=== PATIENT | male | born 1950 | race Caucasian/White ===

== ENCOUNTER 2022-09-21 21:09 | Emergency (ER) | payer MEDICARE, SELFPAY ==
[2022-09-21 21:18] VITALS: BP 178/95; PULSE 76; RESP 16; TEMP 36.2; O2SAT 97
[2022-09-21 23:33] LABS: Glucose Point of Care 98 mg/dl (65-105)
--- NOTE | 2022-09-21 23:33 | PC.NURSE ---
patient walked up to intake desk concerned that his blood sugar is dropping, patients blood sugar checked and found to be 98.
[2022-09-22 00:27] LABS: Add Urine Microscopic? YES; Appearance Urine Clear (Clear); Bacteria Urine Trace /hpf; Bilirubin Urine Negative (Negative); Blood Urine 3+ (Negative); Color Urine Light Yellow (Yellow); Glucose Urine UA Trace mg/dL (Negative); Ketones Urine Trace mg/dL (Negative); Leukocyte Esterase Ur Negative LEU/UL (Negative); Mucus Urine Few /lpf; Nitrate Urine Negative (Negative); Protein Urine Trace mg/dL (Negative); RBC Urine 51-75 /hpf (0-2); Urobilinogen Urine 0.2 mg/dL (<2.0)
[2022-09-22 00:43] LABS: Basophils Absolute Auto 0.1 K/mm3 (0.0-0.1); Basophils Percent Auto 0.4 % (0.2-1.2); Eosinophils Absolute Auto 0.2 K/mm3 (0-0.3); Eosinophils Percent Auto 1.3 % (0-4.4); Hematocrit 42.2 % (42.0-52.0); Hemoglobin 14.2 g/dL (14.0-18.0); Immature Granulocyte Absolute 0.04 K/mm3 (0.00-0.031); Immature Granulocyte Percent A 0.3 % (0-0.5); Lymphocytes Absolute Auto 1.24 K/mm3 (0.9-3.2); Lymphocytes Percent Auto 9.2 % (18.3-44.2); Mean Corpuscular HGB Conc 33.6 g/dl (32-36); Mean Corpuscular Hemoglobin 30.2 pg (26-34); Mean Corpuscular Volume 89.8 fl (80-100); Mean Platelet Volume 10.2 fl (7.4-10.4); Monocytes Percent Auto 7.5 % (2.6-8.5); Neutrophils Absolute Auto 10.9 K/mm3 (1.3-6.7); Neutrophils Percent Auto 81.3 % (45.5-73.1); Platelet Count Result 271 k/mm3 (150-375); Red Cell Distribution Width 13.2 % (11.5-14.5); White Blood Count 13.4 K/mm3 (4.5-10.0)
[2022-09-22 00:55] LABS: Anion Gap 9 mmol/L (8-16); Blood Urea Nitrogen 20 mg/dL (9-20); Calcium 9.7 mg/dL (8.4-10.2); Carbon Dioxide 24 mmol/L (22-30); Chloride 102 mmol/L (98-107); Estimated CRCL calculation 137 ml/min; Estimated Glomerular Filt Rate > 60; Glucose 83 mg/dL (65-110); Potassium 3.9 mmol/L (3.4-5.0); Sodium 135 mmol/L (137-145)
--- NOTE | 2022-09-22 00:59 | ED.GENADULT ---
HPI - General Adult General Chief complaint: Urogenital-Male Stated complaint: urinary retention for 7-8 hours Time Seen by Provider: 09/22/22 00:21 History of Present Illness HPI narrative: This is a 71-year-old male presenting ED for urinary retention. Patient's last voided his bladder at 9:30 a.m. this morning. He then went to lunch with friends and had 3 beers. Since then he has been having increased abdominal pressure in the suprapubic area. Patient is on Flomax for BPH. He has been taking his medication as directed. He has no added medications. He denies urinary symptoms. Denies fever chills nausea vomiting or diarrhea. Related Data Allergies Allergy/AdvReac Type Severity Reaction Status Date / Time No Known Allergies Allergy Verified 09/21/22 21:18 Review of Systems Review of Systems: CONSTITUTIONAL: Denies night sweats. EYES: No eye pain ENT: Denies rhinorrhea CARDIOVASCULAR: Denies palpitations RESPIRATORY: Denies hemoptysis GASTROINTESTINAL: Denies hematemesis GENITOURINARY: Denies hematuria. SKIN: Denies rash MUSCULOSKELETAL: Denies myalgia. NEUROLOGIC: Denies weakness. PSYCHIATRIC: Denies delusions PMFSH Past Medical History Medical History BPH (benign prostatic hyperplasia) Social History Social History Social History: Admits to alcohol, denies tobacco or drug use. Exam Narrative: APPEARANCE: No apparent distress. Head: atraumatic. EYES: EOMI, NOSE: Atraumatic NECK: Trachea midline RESPIRATORY: No increased rate of breathing CARDIOVASCULAR: RRR, ABDOMINAL: Mild tenderness palpation in the suprapubic area, no guarding no rebound no tenderness the rest the abdomen MUSCULOSKELETAl: No obvious deformities NEURO: Alert. Moving 4/4 extremities SKIN:: Warm, dry. Normal color PSYCHIATRIC: Normal affect Course Vital Signs Vital signs: Vital Signs Temperature 97.1 F L 09/21/22 21:18 Pulse Rate 76 09/21/22 21:18 Respiratory Rate 16 09/21/22 21:18 Blood Pressure 178/95 H 09/21/22 21:18 Pulse Oximetry 97 09/21/22 21:18 Oxygen Delivery Room Air 09/21/22 21:18 Temperature 97.1 F L 09/21/22 21:18 Pulse Rate 76 09/21/22 21:18 Respiratory Rate 16 09/21/22 21:18 Blood Pressure 178/95 H 09/21/22 21:18 Pulse Oximetry 97 09/21/22 21:18 Oxygen Delivery Room Air 09/21/22 21:18 Medical Decision Making MDM Narrative Medical decision making narrative: this is a 71-year-old male presenting with urinary retention. Bladder scan showed over 500 cc of urine in the bladder. A leg bag was placed. Lab work and urinalysis were sent. Urinalysis had red blood cells but no evidence of infection. CBC and BMP were within normal limits. Patient will be discharged with urology follow-up with his leg bag in place. Patient states that he has a GP in [place] and will speak to them to get a urology appointment. He will be still be given the referral here if he wishes to see a urologist while and in [place]. Vital Signs Vital Signs: Vital Signs Temperature 97.1 F L 09/21/22 21:18 Pulse Rate 76 09/21/22 21:18 Respiratory Rate 16 09/21/22 21:18 Blood Pressure 178/95 H 09/21/22 21:18 Pulse Oximetry 97 09/21/22 21:18 Oxygen Delivery Room Air 09/21/22 21:18 Temperature 97.1 F L 09/21/22 21:18 Pulse Rate 76 09/21/22 21:18 Respiratory Rate 16 09/21/22 21:18 Blood Pressure 178/95 H 09/21/22 21:18 Pulse Oximetry 97 09/21/22 21:18 Oxygen Delivery Room Air 09/21/22 21:18 Lab Data 09/22/22 00:34 09/22/22 00:34 Labs: Lab Results 09/21/22 09/22/22 09/22/22 Range/Units 23:30 00:16 00:34 WBC 13.4 H (4.5-10.0) K/mm3 RBC 4.70 (4.6-6.20) M/mm3 Hgb 14.2 (14.0-18.0) g/dL Hct 42.2 (42.0-52.0) % MCV 89.8 (80-100) fl MCH 30.2 (26-34) pg MCHC 33.6 (32-36)
[2022-09-22 02:10] VITALS: PULSE 90; RESP 18; O2SAT 99
== END 2022-09-22 03:59 | disposition home or self-care (01) ==
PROVIDERS: Emergency Provider Emergency Medicine
DX: N40.1 Benign prostatic hyperplasia with lower urinary tract symptoms (principal); R33.8 Other retention of urine
CPT/HCPCS: 36415; 51702; 80048; 81001; 82948; 85025; 99283